=== PATIENT | male | born 1955 ===

== ENCOUNTER 2017-03-14 07:16 | Emergency (ER) | payer BC ==
[2017-03-14 07:36] VITALS: BP 142/84
--- NOTE | 2017-03-14 08:06 | UC ---
Ear Complaint HPI - HPI Summary HPI Summary: 2 DAYS OF PAIN IN LEFT TEMPORAL/EAR AREA. SHARP STABBING PAIN THAT WILL WAKE HIM FROM SLEEP. RECENTLY COMPLETED A ZPAK FOR COUGH/CONGESTION WITH IMPROVEMENT IN SX. PT REPORTS HE GETS FREQUENT JOY BUT THIS FEELS DISTINCTLY DIFFERENT. USUALLY TAKES EXCEDRIN FOR HIS JOY - DID NOT HELP. HAS A H/O APPENDIX CANCER WITH METS. DENIES ANY FEVER OR VISUAL DISTURBANCES. DOES REPORT SOME NAUSEA AND VOMITED YESTERDAY. NONE TODAY. ADMITS HE DOESN'T HYDRATE WELL AND ONLY SLEEPS 4- 6 HOURS PER NIGHT. - History of Current Complaint Chief Complaint: UCEar Stated Complaint: LFT EAR PAIN/JOY Time Seen by Provider: 03/14/17 07:19 Hx Obtained From: Patient, Family/Polymer Tester - Onset/Duration: Gradual Onset, Lasting Days, Still Present Severity Initially: Moderate Severity Currently: Moderate Pain Intensity: 5 Pain Scale Used: 0-10 Numeric Aggravating Factors: Nothing Alleviating Factors: Nothing Associated Signs/Symptoms: Positive: URI Symptoms. Negative: Discharge, Hearing Loss, Foreign Body Sensation, Trauma to Ear, Swelling @ - Allergies/Home Medications Allergies/Adverse Reactions: Allergies Allergy/AdvReac Type Severity Reaction Status Date / Time No Known Allergies Allergy Verified 03/14/17 07:28 Home Medications: Home Medications Tamsulosin CAP* [Flomax CAP*] 1 cap DAILY 03/14/17 [History Confirmed 03/14/17] PMH/Surg Hx/FS Hx/Imm Hx Cancer History: Colorectal Cancer - Surgical History Surgical History: None - Family History Known Family History: Positive: Hypertension Family History: NO FAM H/O INTRACRANIAL ANEURYSM - Social History Alcohol Use: None Substance Use Type: None Smoking Status (MU): Never Smoked Tobacco Review of Systems Constitutional: Negative ENT: Ear Ache, Nasal Discharge Respiratory: Cough Cardiovascular: Negative Gastrointestinal: Vomiting, Nausea Neurological: Headache All Other Systems Reviewed And Are Negative: Yes Physical Exam Triage Information Reviewed: Yes Appearance: Well-Appearing, No Pain Distress, Well-Nourished Vital Signs: Initial Vital Signs Temp 98.7 F 03/14/17 07:28 Pulse 77 03/14/17 07:28 Resp 16 03/14/17 07:28 BP 142/84 03/14/17 07:28 Pulse Ox 96 03/14/17 07:28 Vital Signs Reviewed: Yes Eyes: Positive: Conjunctiva Clear ENT: Positive: Hearing grossly normal, Pharynx normal, TMs normal Neck: Positive: Supple, Nontender, No Lymphadenopathy Respiratory Exam: Normal Cardiovascular Exam: Normal Abdomen Description: Positive: Soft Musculoskeletal: Positive: No Edema Neurological: Positive: Alert Psychological: Positive: Normal Response To Family, Age Appropriate Behavior Skin: Negative: rashes Diagnostics - Radiology CT HEAD Xray Interpretation: No Acute Changes Radiology Interpretation Completed By: Radiologist Ear Complaint Course/Dx - Course Course Of Treatment: DISCUSSED DIFFERENTIAL INCLUDING TEMPORAL ARTERITIS, INTRACRANIAL PATHOLOGY IN A PT WITH H/O CANCER. PT ALSO CURRENTLY HAS URI SX. CT HEAD W/O CONTRAST UNREMARKABLE. ADVISED CONSERVATIVE MGMT FOR NOW - HYDRATE, REST, OTC MEDS NEEDED. TO ER OR F/U WITH PCP IF SX WORSEN OR DO NOT IMPROVE. - Differential Dx/Diagnosis Provider Diagnoses: ACUTE LEFT TEMPORAL JOY Discharge - Discharge Plan Condition: Stable Disposition: HOME Patient Education Materials: Acute Headache (ED), General Headache (ED) Referrals: Lamont Benson MD [Primary Care Provider] - If Needed Additional Instructions: CT SCAN OF THE HEAD TODAY WAS UNREMARKABLE. BE SURE TO HYDRATE WELL AND TRY TO REST MUCH POSSIBLE. IBUPROFEN NEEDED FOR JOY. YOUR JOY MAY BE PART OF YOUR UPPER RESPIRATORY SYNDROME AND HOPEFULLY WILL IMPROVE YOUR RESPIRATORY SYMPTOMS IMPROVE. BE SURE TO FOLLOW-UP WITH YOUR PCP OR GO TO THE ER IF YOUR SYMPTOMS PERSIST OR WORSEN. YOUR BLOOD PRESSURE WAS ELEVATED TODAY (142/84). THIS MAY BE DUE TO YOUR ACUTE CONDITION. MONITOR AND FOLLOW-UP WITH YOUR PCP WITHIN 4 WEEKS IF IT HAS NOT RETURNED TO NORMAL.
--- NOTE | 2017-03-14 08:43 | RAD ---
Indication: LEFT temporal parietal headache for 3 days. Comparison: No relevant prior exams available on the [facility] PACS for comparison. Technique: Noncontrast CT vertex of skull through foramen magnum. Report: The sulci, ventricles, and basal cisterns are normal for age. Gustafson matter white matter differentiation is preserved without evidence for edema. No intra or extra axial hemorrhage, mass, or fluid collection detected. Unremarkable visualized orbital contents. Unremarkable calvarium and skull base. Unremarkable scalp. The visualized paranasal sinuses and mastoid air spaces are clear. IMPRESSION: Negative unenhanced head CT.
== END 2017-03-14 09:10 | disposition home or self-care (01) ==
LOC: UCCORT 07:16
DX: G44.009 Cluster headache syndrome, unspecified, not intractable (principal); H92.02 Otalgia, left ear; Z85.038 Personal history of other malignant neoplasm of large intestine
CPT/HCPCS: 70450; 99201; G0463